=== PATIENT | female | born 1985 | race Caucasian/White ===

== ENCOUNTER 2022-08-12 10:37 | Emergency (ER) | payer OTHER ==
--- OUTSIDE RECORDS SUMMARY | 2022-08-12 10:55 | XMS REPORT | Continuity of Care Document ---
:1985 Author Organization [facility] t Address [address] [place] [address]. [address] [place] [address] Care Team Providers Name Role Phone ELSA JUNIOR Primary Care Physician Unavailable Regi Lynn Attending Clinician Unavailable Fallon Bhakta Attending Clinician Unavailable KAROLINE MEDEROS Attending Clinician Unavailable CRISTOBAL MARTINEZ Attending Clinician Unavailable LAB90 Attending Clinician Unavailable RADIOLOGY Attending Clinician Unavailable Radiology Attending Clinician Unavailable EMILIA Attending Clinician Unavailable Stephanie Clemente Attending Clinician Unavailable Regi Lynn Admitting Clinician Unavailable ELSA JUNIOR Admitting Clinician Unavailable EMILIA Admitting Clinician Unavailable Stephanie Clemente Admitting Clinician Unavailable Payers Payer Name Policy Type Policy Number Effective Date Expiration Date Reggie roman CIGNA 2 [id number] 2022 00:00:00 CIGNA II [id number] 2021 00:00:00 CIGNA C1 [id number] [facility] Problems Condition Condition Condition Status Onset Resolution Last Treating Co mments Source Name Details Category Date Date Treatment Clinician Date Current Current Disease Active Chani mild mild 2-08 Seybold episode of episode of 00:00: - major major 00 Externa depressive depressive l disorder disorder without without prior prior episode episode Acquired Acquired Disease Active Kelse y hypothyroi hypothyroi 06-20 Se ybold dism dism 00:00: - 00 Externa l Seasonal Seasonal Disease Active Kelse y allergic allergic - Seybol d rhinitis rhinitis 00:00: - due to due to 00 Externa pollen pollen l 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 06-20 Seybold disease disease 00:00: - without without 00 Externa complicati complicati l on on Well adult Well adult Disease Active Liana obrien exam exam 06-20 Seybold 00:00: - 00 Externa l History of History of Disease Active Liana elsegabriele abnormal abnormal 06-20 Seybol d cervical cervical 00:00: - Pap smear Pap smear 00 Exte rna l Thyromegal Thyromegal Disease Active Liana obrien y y 06-20 Seybold 00:00: - 00 Externa l Thyroid Thyroid Disease Active Chani nodule nodule 06-20 Seybold 00:00: - 00 Externa l 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 06-20 Seybold obesity obesity 00:00: - due to due to 00 Externa excess excess l calories calories without without serious serious comorbidit comorbidit y with y with body mass body mass index index (BMI) of (BMI) of 40.0 to 40.0 to 44.9 in 44.9 in adult adult Chronic Chronic Disease Active Chani right-side right-side 06-20 Se ybold d low back d low back 00:00: - pain with pain with 00 Exte rna sciatica sciatica l Long-term director long term care Problem Active Com mon current medication Spiri t use of use - [facility] drug [facility] Nicotine Nicotine Problem Active Commo n dependence dependence Sp [facility] [id number] Moderate Problem Active Comm on persistent Spirit asthma - [facility]I without St complicati [facility] Vitamin D Vitamin D Problem Active Com mon deficiency deficiency Sp [facility] Depression Depression Problem Active C ommon [facility] Environmen Environmen Problem Active C ommon lizzy lizzy Spirit allergy allergies - [facility] [id number] Eczema, Problem Active Common unspecifie Spirit d type - [facility] Allergies, Adverse Reactions, Alerts Allergy Allergy Status Severity Reaction(s) Onset Inactive Treating Comm ents Source Name Type Date Date Clinician gabrielas FA Active U UNKNOWN [facility] h 2-21 Clear derived 00:00: Angelo 00 [facility] Iodine Propensi Active Other Chani ty to 1-11 reaction( Seybold adverse 00:00: s): - reaction 00 Unknown Externa s l Shellfis Propensi Active Other Chani h ty to 1-11 reaction( Seybold Allergy adverse 00:00: s): - reaction 00 Unknown Externa s l No Known DA Active U [facility] Allergie 2-12 [place] s 00:00: d 00 [facility] NO KNOWN Drug Active Univers ALLERGIE Class ity of S [facility] Social History Social Habit Start Date Stop Date Quantity Comments Source History SDOH Chani whitehead Alcohol Frequency - Exter nal History SDOH Chani whitehead Alcohol Std Drinks - Exte rnal History SDOH Chani whitehead Alcohol Binge - External History of tobacco Cigarette Smoker Chani Angel use - External Alcohol intake 2022-07-18 2022-07-18 3.43 /d Chani parnell 00:00:00 00:00:00 - External Alcohol Comment 2022-06-20 2022-06-20 moderately Chani bishop 00:00:00 00:00:00 - External Education 2022-06-20 2022-06-20 16 Chani Angel 00:00:00 00:00:00 - External Cigarettes smoked 2022-06-20 2022-06-20 Chani Angel current (pack per 00:00:00 00:00:00 - Exter nal day) - Reported Cigarette 2022-06-20 2022-06-20 Chani Angel pack-years 00:00:00 00:00:00 - External Tobacco use and 2022-06-20 2022-06-20 Smokeless tobacco Ke lsey Seybold exposure 00:00:00 00:00:00 non-user - External Sex [birth year] At [birth year] Chani Gill ybold 00:00:00 00:00:00 - External Smoking Status Start Date Stop Date Source Tobacco smoking consumption [facility] Smokes tobacco daily 2022-06-20 00:00:00 Chani Gillybold - External Medications Ordered Filled Start Stop Current Ordering Indication Dosage Frequency Signature Comments Components Source Medication Medication Date Date Medication? Clinician (SIG) Name Name Cetirizine Yes 1{tbl} 1 tablet K elsey 10 MG oral 2-08 by other Seybo ld Tablet 11:11: route - 55 Externa l Rhubarb Yes Take by Chani (ESTROVEN 2-08 mouth Seybold COMPLETE 11:11: - OR) 55 Externa l Gabapentin Yes [id number] 300mg Q.5D Take 1 Chani 300 MG oral -08 capsule Seybo ld Capsule 00:00: (300 mg - total) by Externa mouth 2 l times daily as needed Levothyroxi 2022- No 50ug 50 mcg by Chani ne Sodium 06-20 other Seybold 50 MCG oral 11:11: 00:00 route - Tablet 07 :00 daily Externa l Sertraline 2022- No 50mg 50 mg by [place] mims HCl 50 MG 06-20 other Seybold oral Tablet 11:11: 00:00 route - 07 :00 daily Externa l Budesonide- 2022- No 2{puff} Inhale 2 Chani Formoterol 06-20 puffs into Se ybold Fumarate 11:11: 00:00 the lungs - (Symbicort) 07 :00 2 times Exter na 160-4.5 daily l MCG/ACT inhalation Aerosol Administere No Administer Chani puente 06-20 ed Seybold Medications 10:46: Medication - Medication 34 sMedicatio Ext crissy OrderMAR n OrderMAR l ActionActio ActionActi n on DateDoseRat DateDoseRa eSiteDecadr teSiteDeca onGi/ dronGiven9 {mg}Decadro {mg}Decadr nGiven2 onGiven07/11 {mg}Decadro {mg}Decadr sErmtt67/3/ blLfubw64 {mg}Kenalog {mg}Kenalo Given02/12/20 gGiven183940 {mg}Kenalog {mg}Kenalo Given nFpqts47/3 96713 {mg} /117943 {mg} Administere 2022-0 No Administer Chani d -11 ed Seybold Medications 10:46: Medication - Medication 34 sMedicatio Ext crissy OrderMAR n OrderMAR l ActionActio ActionActi n on DateDoseRat DateDoseRa eSiteDecadr teSiteDeca onGiven02/11/ dronGiven {mg}Decadro {mg}Decadr nGiven187 {mg}Decadro {mg}Decadr pDjpyj03/3/ pwSoxjw72 {mg}Kenalog {mg}Kenalo Given02/12/20 gGiven183940 {mg}Kenalog {mg}Kenalo Given bBxqmp00/3 86989 {mg} / {mg} Administere No Administer Chani d - ed Seybold Medications 10:46: Medication - Medication 34 sMedicatio Ext crissy OrderMAR n OrderMAR l ActionActio ActionActi n on DateDoseRat DateDoseRa eSiteDecadr teSiteDeca onGi/ dronGiven9 {mg}Decadro {mg}Decadr nGiven187 {mg}Decadro {mg}Decadr eVmmyw68/3/ cgLymfu27 {mg}Kenalog {mg}Kenalo Given02/12/20 gGiven183940 {mg}Kenalog {mg}Kenalo Given mFlffn23/3 12492 {mg} /523014 {mg} Administere No Administer Chani d - ed Seybold Medications 10:46: Medication - Medication 34 sMedicatio Ext crissy OrderMAR n OrderMAR l ActionActio ActionActi n on DateDoseRat DateDoseRa eSiteDecadr teSiteDeca onGiven9/4/ dronGiven9 {mg}Decadro {mg}Decadr nGiven187 {mg}Decadro {mg}Decadr mKqdji77// ozXaceo08 {mg}Kenalog {mg}Kenalo Given02/12/20 gG183940 {mg}Kenalog {mg}Kenalo Given qXpdlz90/3 42563 {mg} / {mg} Administere No Administer Chani d 06-20 ed Seybold Medications 10:46: Medication - Medication 34 sMedicatio Ext crissy OrderMAR n OrderMAR l ActionActio ActionActi n on DateDoseRat DateDoseRa eSiteDecadr teSiteDeca onGiven// dronGiven9 {mg}Decadro {mg}Decadr nGiven187 {mg}Decadro {mg}Decadr hDihmr45// syUxpvv38 {mg}Kenalog {mg}Kenalo Given02/12/20 gGiven183940 {mg}Kenalog {mg}Kenalo Given oSmemh57/3 91359 {mg} /202668 {mg} Cetirizine 2022- Yes 1{tbl} 1 tablet K elsey 10 MG oral 06-20 by other Seybo ld Tablet 10:46: route - 33 Externa l Rhubarb Yes Take by Chani (ESTROVEN - mouth Seybold COMPLETE 10:46: - OR) 33 Externa l Sertraline Yes [id number] 50mg Take 1 Chani HCl 50 MG 1-11 tablet (50 Seyb old oral Tablet 00:00: mg total) - 00 by mouth Externa daily l Levothyroxi 2022-0 Yes [id number] 50ug Take 1 Chani ne Sodium 1-11 tablet (50 Seyb old 50 MCG oral 00:00: mcg total) - Tablet 00 by mouth Externa daily l Budesonide- 2022-0 Yes [id number] 2{puff} Inhale 2 Chani Formoterol 1-11 6 puffs into Sey bold Fumarate 00:00: the lungs - (Symbicort) 00 daily Externa 160-4.5 l MCG/ACT inhalation Aerosol Gabapentin 2022-0 Yes [id number] 100mg Q.5D Take 1 Chani 100 MG oral 1-11 capsule Seybo ld Capsule 00:00: (100 mg - 00 total) by Externa mouth 2 l times daily as needed Sertraline 2022-0 Yes [id number] 50mg Take 1 Chani HCl 50 MG 1-11 tablet (50 Seyb old oral Tablet 00:00: mg total) - 00 by mouth Externa daily l Levothyroxi 2022-0 Yes [id number] 50ug Take 1 Chani ne Sodium 1-11 tablet (50 Seyb old 50 MCG oral 00:00: mcg total) - Tablet 00 by mouth Externa daily l Budesonide- 2022-0 Yes [id number] 2{puff} Inhale 2 Chani Formoterol 1-11 6 puffs into Sey bold Fumarate 00:00: the lungs - (Symbicort) 00 daily Externa 160-4.5 l MCG/ACT inhalation Aerosol Gabapentin 2022-0 2023- No [id number] 100mg Q.5D Take 1 Chani 100 MG oral 1-11 02-08 capsule Seyb old Capsule 00:00: 00:00 (100 mg - 00 :00 total) by Externa mouth 2 l times daily as needed Hibiclens Hibiclens 2020-0 Yes Fallon Nixon mmon Hand Pump Hand Pump 2-20 [place] directed Spirit 32oz 32oz 00:00: - [facility] 00 [facility] Hibiclens Hibiclens 2020-0 No Hibiclens Hand Pump Hand Pump 2-20 Hand Pump 32oz - 32oz - 00:00: 32oz - 00 Hibiclens Hibiclens 2020-0 No Hibiclens Hand Pump Hand Pump 2-20 Hand Pump 32oz - 32oz - 00:00: 32oz - 00 Hibiclens Hibiclens 2020-0 No Hibiclens Hand Pump Hand Pump 2-20 Hand Pump 32oz - 32oz - 00:00: 32oz - 00 Keflex Keflex 2019-0 2020- No Fallon 1 capsule Co mmon 2-20 03 [place] Spirit 00:00: 00:00 - CHI 00 :00 [facility] Symbicort Symbicort 0 2020- No Fallon 2 puffs Common 07-07 [place] Spirit 00:00: 00:00 - [facility]I 00 :00 [facility] 2018-06 Yes Fallon 1 Common ne ne 2-03 [place] applicatio Spirit Acetonide Acetonide 00:00: n - C HI 00 [facility] 2018-06 No 1{appli Triamcinol ne ne 2-03 cation} one Acetonide Acetonide 00:00: Acetonide 0.1 % 0.1 % 00 0.1 % [facility] No 1{appli Triamcinol ne ne 2-03 cation} one Acetonide Acetonide 00:00: Acetonide 0.1 % 0.1 % 00 0.1 % [facility] No 1{appli Triamcinol ne ne 2-03 cation} one Acetonide Acetonide 00:00: Acetonide 0.1 % 0.1 % 00 0.1 % Vitamin D3 Vitamin D3 2018-06 2020- No Fallon 1 capsule Common - 05 [place] Spirit 00:00: 00:00 - CHI 00 :00 [facility] Zyrtec Zyrtec Yes Fallon 1 tablet Common Allergy Allergy [facility] Zoloft Zoloft Yes Fallon 1 tablet Common [facility] Levothyroxi Levothyroxi Yes Fallon 1 tablet Common ne Sodium ne Sodium [place] in the Sp vern morning on - CHI an empty [facility] Sertraline Sertraline No Sertraline HCl 50 MG HCl 50 MG HCl 50 MG Zyrtec Zyrtec No 1{table QD Zyrtec Allergy 10 Allergy 10 t} Allergy 10 MG MG MG Levothyroxi Levothyroxi No QD Levothyrox ne Sodium ne Sodium ine Sodium 50 MCG 50 MCG 50 MCG Zyrtec Zyrtec No 1{table QD Zyrtec Allergy 10 Allergy 10 t} Allergy 10 MG MG MG Sertraline Sertraline No Sertraline HCl 50 MG HCl 50 MG HCl 50 MG Levothyroxi Levothyroxi No QD Levothyrox ne Sodium ne Sodium ine Sodium 50 MCG 50 MCG 50 MCG Levothyroxi Levothyroxi No QD Levothyrox ne Sodium ne Sodium ine Sodium 50 MCG 50 MCG 50 MCG Sertraline Sertraline No Sertraline HCl 50 MG HCl 50 MG HCl 50 MG ZyrTEC ZyrTEC No 1{table QD ZyrTEC Allergy 10 Allergy 10 t} Allergy 10 MG MG MG Symbicort Symbicort 2020- No 2{puffs BID Symbicort 160-4.5 160-4.5 09-07 } 160-4.5 MCG/ACT MCG/ACT 00:00 MCG/ACT :00 Symbicort Symbicort 2020- No 2{puffs BID Symbicort 160-4.5 160-4.5 09-07 } 160-4.5 MCG/ACT MCG/ACT 00:00 MCG/ACT :00 Symbicort Symbicort 2020- No 2{puffs BID Symbicort 160-4.5 160-4.5 09-07 } 160-4.5 MCG/ACT MCG/ACT 00:00 MCG/ACT :00 Immunizations Ordered Immunization Filled Immunization Date Status Commen ts Source Name Name Dexamethasone Dexamethasone 2019-05-12 Completed Common S pirit 11:23:00 - [facility] Dexamethasone Dexamethasone 2019-05-12 Completed [facility] 11:23:00 [facility] Dexamethasone Dexamethasone 2019-05-12 Completed [facility] 11:23:00 [facility] Kenalog Kenalog 2019-05-12 Completed [facility] (Triamcinolone) (Triamcinolone) 11:22:00 [facility] Kenalog Kenalog 2019-05-12 Completed [facility] (Triamcinolone) (Triamcinolone) 11:22:00 - [facility] 2019-05-12 Completed [facility] (Triamcinolone) (Triamcinolone) 11:22:00 - [facility] 2018-02-11 Completed [facility] (Triamcinolone) (Triamcinolone) 15:07:00 - [facility] 2018-02-11 Completed [facility] (Triamcinolone) (Triamcinolone) 15:07:00 - [facility] 2018-02-11 Completed [facility] (Triamcinolone) (Triamcinolone) 15:07:00 - [facility] Dexamethasone Dexamethasone 2018-02-11 Completed Common S pirit 15:06:00 - [facility] Dexamethasone Dexamethasone 2018-02-11 Completed Common S pirit 15:06:00 - [facility] Dexamethasone Dexamethasone 2018-02-11 Completed Common S pirit 15:06:00 - [facility] Dexamethasone Dexamethasone 2017-07-11 Completed Common S pirit 15:10:00 - [facility] Dexamethasone Dexamethasone 2017-07-11 Completed Common S pirit 15:10:00 - [facility] Dexamethasone Dexamethasone 2017-07-11 Completed Common S pirit 15:10:00 - [facility] Vital Signs Vital Name Observation Time Observation Value Comments Source Systolic blood 2022-07-18 17:09:00 123 mm[Hg] Chani Angel - pressure External Diastolic blood 2022-07-18 17:09:00 75 mm[Hg] Carmen Angel - pressure External Heart rate 2022-07-18 17:09:00 85 /min Chani wick - External Body temperature 2022-07-18 17:09:00 36.78 Mami Kaylie Angel - External Respiratory rate 2022-07-18 17:09:00 14 /min Kaylie Angel - External Body height 2022-07-18 17:09:00 167.6 cm Chani wick - External Body weight 2022-07-18 17:09:00 115.214 kg Chani wick - External BMI 2022-07-18 17:09:00 41.00 kg/m2 Chani S eybold - External Oxygen saturation in 2022-07-18 17:09:00 99 /min Chani Angel - Arterial blood by External Pulse oximetry Systolic blood 2022-06-20 16:39:00 110 mm[Hg] Chani Angel - pressure External Diastolic blood 2022-06-20 16:39:00 68 mm[Hg] Carmen suazo Seybold - pressure External Heart rate 2022-06-20 16:39:00 93 /min Chani ahujabold - External Body temperature 2022-06-20 16:39:00 36.28 Mami Kaylie ahuja Seybold - External Respiratory rate 2022-06-20 16:39:00 14 /min Kaylie ahuja Seybold - External Body height 2022-06-20 16:39:00 167.6 cm Chani ahujabold - External Body weight 2022-06-20 16:39:00 113.399 kg Chani Paredes eybold - External BMI 2022-06-20 16:39:00 40.35 kg/m2 Chani ahujabold - External height 2021-01-16 16:00:00 65.75 [in_i] Common [facility] weight 2021-01-16 16:00:00 235.8 [lb_av] [facility] temperature 2021-01-16 16:00:00 97.6 [degF] Common [facility] bmi 2021-01-16 16:00:00 38.34 kg/m2 [facility] oximetry 2021-01-16 16:00:00 99 % [facility] 2021-01-16 16:00:00 16 /min Comm on [facility] blood pressure 2021-01-16 16:00:00 139 mm[Hg] Common [facility] - systolic [facility] blood pressure 2021-01-16 16:00:00 84 mm[Hg] Common [facility] - diastolic [facility] height 2020-07-19 16:20:00 65.75 [in_i] Common S pirit [facility] weight 2020-07-19 16:20:00 232.2 [lb_av] Common [facility] temperature 2020-07-19 16:20:00 97.2 [degF] Common [facility] bmi 2020-07-19 16:20:00 37.76 kg/m2 Common [facility] oximetry 2020-07-19 16:20:00 99 % Common [facility] respiratory rate 2020-07-19 16:20:00 18 /min Comm on [facility] blood pressure 2020-07-19 16:20:00 137 mm[Hg] Common [facility] systolic [facility] blood pressure 2020-07-19 16:20:00 72 mm[Hg] Common [facility] diastolic [facility] Procedures Procedure Date / Time Performed Performing Clinician [facility] US HEAD NECK 2021-12-29 13:38:45 Requisition, Paper [facility] [id number] 2015-07-22 00:00:00 [facility] [id number] 2015-07-22 00:00:00 [facility] Encounters Start End Encounter Admission Attending Care Care Encounter Source Date/Time Date/Time Type Type Clinicians Facility Department ID 2022-08-09 Inpatient MANSI Tabor [id number] [facility] 07:30:00 Regi Dewey [facility] 2021-07-05 Outpatient [place], [facility]LMLC [facility] [id number] Common 12:24:22 Fallon [id number] [facility] 2021-07-05 Outpatient [place], STLMLC ST[facility]C [id number] Common 12:22:30 Fallon [id number] [facility] 2021-07-05 Outpatient [place], STLMLC ST[facility]C [id number] Common 11:08:53 Fallon [id number] [facility] 2021-07-05 Outpatient [place], STLMLC STLMLC [id number] Common 10:57:48 Fallon [id number] [facility] 2022-09-21 2022-09-21 Outpatient CHANI MEDEROS [id number] Chani 14:00:00 14:00:00 KAROLINE Seybol d 2022-09-11 2022-09-11 Outpatient CHANI MEDEROS [id number] Chani 14:30:00 14:30:00 KAROLINE Seybol d 2022-08-29 2022-08-29 Outpatient CHANI MARTINEZ [id number] Chani 11:15:00 11:15:00 CRISTOBAL Seybol d 2022-08-09 2022-08-09 [id number] [facility] 05:33:00 05:33:00 Regi Dewey [facility] 2022-07-18 2022-07-18 Outpatient CHANI MARTINEZ [id number] Chani 11:15:00 11:15:00 CRISTOBAL Seybol d 2022-06-20 2022-06-20 Outpatient LAB90 CHANI COTE [id number] Chani 11:30:00 11:30:00 Seybol d 2022-06-20 2022-06-20 Outpatient CHANI MARTINEZ [id number] Chani 10:45:00 10:45:00 CRISTOBAL Seybol d 2021-12-29 2021-12-29 Outpatient R RADIOLOGY [facility] [id number] Univers 08:08:34 23:59:00 ity of [facility] 2021-12-29 2021-12-29 Hospital Radiology [facility] [id number] Univers 08:00:00 23:59:00 Encounter [place] [id number] ity [facility] [id number] [facility] [id number] [facility] [address] 2021-12-19 2021-12-19 Outpatient [facility] [id number] [place] 02:13:00 02:13:00 _ANN 0712 da [facility] Outre h Program 2021-01-16 2021-01-16 OFFICE STLMLC STLMLC [id number] Co mmon 00:00:00 00:00:00 VISIT EST Spir it PT LEVEL 3 - [facility] 2020-07-30 2020-07-30 (TEL) STLMLC STLMLC [id number] Co mmon 00:00:00 00:00:00 Spirit - CHI [facility] 2020-07-19 2020-07-19 OFFICE STLMLC STLMLC [id number] Co mmon 00:00:00 00:00:00 VISIT EST Spir it PT LEVEL 3 [facility] 2019-07-30 2019-07-30 [facility] [id number] Common 14:00:00 14:00:00 t [facility] [address] [facility] [facility] 2019-07-07 2019-07-07 Outpatient [facility] [id number] Common 16:54:00 16:54:[address] [facility] 2019-06-12 2019-06-12 Outpatient [facility] [id number] Common 09:40:00 09:40:00 t [facility] [address] [facility] [facility] 2019-05-12 2019-05-12 Outpatient [facility] [id number] Common 10:40:00 10:40:00 t [facility] [address] [facility] [facility] 2019-04-29 2019-04-29 Outpatient [facility] [id number] Common 11:36:00 11:36:00 t [facility] [address] [facility] [facility] 2019-04-20 2019-04-20 Outpatient [facility] [id number] Common 15:20:00 15:20:[address] [facility] 2015-07-22 2015-07-23 [id number] 07:49:00 17:20:[address] [place] [address] Results Test Description Test Time Test Comments Results Result Comments Source SURGICAL 2022-08-10 15:18:00 Test Item Value Reference Range Interpretation Comme nts SURGICAL RUN DATE: (test 08/10/22 [facility] Danny Muhammad d - LAB PAGE 1 RUN TIME: 1518 Specimen Inquiry RUN USER: INTERFACE code = PATIENT: LANETTE BLACKMON ACCT #: [id number] LOC: ChitraU U #: [id number] AGE/SX: 37/F ROOM: RE08/09/22REG DR: Regi Lynn MD : 85 BED: DIS: STATUS : [facility] TLOC: SPEC #: [id number] RECD: 08/09/221056 STATUS: CAITLIN STACK #: [id number] NEREIDA: 08/09/22853 [facility] DR: Regi Lynn MD ENTER ED: 08/09/22 SP TYPE: SURGICAL OTHR DR: ORDERED: 33629/2, ANATOMIC SPEC, SPECIMEN TRACK PROCEDU RES: [id number] (08/10/22-1246) SPECIMEN TRACK (08/09/22) TISSUES: A. THYROID LOBE, LEFT - LEFT TH YROID B. THYROID LOBE, RIGHT - RIGHT THYROID FINAL DIAGNOSIS A. Left thyroid, left thyroidectomy: - Multinodular hyperplasia B. Right thryoid, right thyroidectomy:- Multinodular hyperplasia and small fragment of benign parathyroid tissue present GROSS DESCRIPTION A. Left thyroid. Received is a thyroid lobe that weighs 28.6 g and measures 5.5 x 4 x 3.2cm. No orientation is provided. The surface is vascular and purple. The external surface isinked green. It is serially sectioned to reveal a multi soft nodular surface. These nodulesrange 0.6 - 2.8 cm in greatest dimension. It has a partially calcified wall surroundinga cystic area measuring 0.8 x 0.5 x 0.5 cm. No papillary features are identified. Nop arathyroid tissue is grossly seen. The cystic calcified wall submitted as A1 and multipleadditional secti ons submitted as A2-A10. B. Right thyroid. Received is a thyroid lobe that weighs 8.4 g and measure 4.5 x 2.2 x 1.5cm. There is a nodule on the surface measuring 0.5 x 0.4 x 0.4 cm. The external surfaceis i nked blue. No orientation is provided. It is serially sectioned to reveal a fibrousnodule measuring 0.5 x 0.5 x 0.4 cm and a gelatinous nodule 0.5 x 0.4 x 0.4 cm. Thefibrous nodule submitted as B1-B2, gelatino us nodule submitted as B3-B4 and normalappearing thyroid parenchyma as B5 and the nodule on the surfac e is bisected submitted asB6. Technical tissue processing and slide preparation performed at [facility] [address] , [place] [address] Unless gross only, the diagnosis is based upon micr oscopic examination.Immunohistochemistry: This test was developed and its performance characteristicsd etermined by this laboratory. It has not been approved nor does it need approval by the USFDA. Appro priate positive and negative controls are reviewed and judged to be acceptable. CONTINUED ON NEXT PAGE RUN DATE: 08/10/22 ROBBY Delgado [employer] [facility] LAB PAGE 2 RUN TIME: 1517 Specimen Inquiry RUN USER: INTERFACE SPEC #: [id number] PATIENT: LANETTE ROBLEDO #[id number] (Continued) GROSS DESCRIPTION (Continued ) This laboratory is certified under the Clinical Laboratory Improvement Amendments (CLIA-88)as quali fied to perform high complexity clinical laboratory testing. Signed Kimberly Larsen 08/30 END OF REPORT PARATHYROID HORMONE [id number] 14:21:00 Test Item Value Reference Range Interpretation Comments PARATHYROID HORMONE INTACT (test 3.8 pg/mL 14.0-72.0 L code = PARAI) PARATHYROID HORMONE [id number] 14:20:00 Test Item Value Reference Range Interpretation Comments PARATHYROID HORMONE INTACT (test 3.8 pg/mL 14.0-72.0 L code = PARAI) PROTHROMBIN [id number] 16:48:00 Test Item Value Reference Range Interpretation Comments PT PATIENT (test 10.6 SECONDS 9.3-12.9 N code = PTP) INTERNATIONAL NORMAL 0.96 INR Unit 0.8-1.2 N TARGE T INR BY RATIO (test code = INDICATIO N Indication INR) INR1. Prophylax is of venous thrombos is 2.0 - 3.0 (orthoped ic surgery), Proph ylaxis of venous throm bosis (other than hig h-risk surgery), Treat ment of Deep Vein Thrombosis/Pulm onary Embolism, Preve ntion of systemic emb olism - Tissue heart va lves, Acute Myocardia l Infarction (to prevent systemic emboli sm), Valvular heart disease, Acute Myocardial Infa rction (to prevent sys temic embolism), Valv ular heart disease, Atrial Fibrillation, Bileaflet mecha nical valve in aortic position.2. Mec hanical prosthetic valv es (high risk), 2. 5 - 3.5 Presence of Lup us Anticoagulant o r Antiphospholipi d Antibodies, Pre vention of systemic emb olism - Acute Myocardia l Infarction (to prevent recurrent infar ct). THROMBOPLASTIN TIME [id number] 16:48:00 Test Item Value Reference Range Interpretation Comments THROMBOPLASTIN TIME PARTIAL 28.8 SECONDS 26-35 N (test code = PTT) CBC W/AUTO [id number] 15:48:00 Test Item Value Reference Range Interpretation Comments WHITE BLOOD CELL (test code = 7.2 K/mm3 3.5-11.0 N WBC) RED BLOOD CELL (test code = 3.98 M/mm3 4.70-6.10 L RBC) HEMOGLOBIN (test code = HGB) 13.7 G/DL 10.4-14.9 N HEMATOCRIT (test code = HCT) 40.3 % 31.5-44.1 N MEAN CELL VOLUME (test code = 101.3 Fl 84.5-98.6 H MCV) MEAN CELL HGB (test code = MCH) 34.4 pg 27.0-34.2 H MEAN CELL HGB CONCETRATION 34.0 G/DL 31.5-34.0 N (test code = MCHC) RED CELL DISTRIBUTION WIDTH 12.0 SD 11.5-14.5 N (test code = RDW) PLATELET COUNT (test code = 200 K/mm3 150-450 N PLT) MEAN PLATELET VOLUME (test code 10.30 fL 7.0-10.5 N = MPV) NEUTROPHIL % (test code = NT%) 57.5 % 40-76 N IMMATURE GRANULOCYTE % (test 0.3 % 0.0-5.0 N code = IG%) LYMPHOCYTE % (test code = LY%) 27.8 % 20.5-51.1 N MONOCYTE % (test code = MO%) 11.6 % 1.7-9.3 H EOSINOPHIL % (test code = EO%) 2.0 % 0.0-6.0 N BASOPHIL % (test code = BA%) 0.8 % 0.0-2.0 N NUCLEATED RBC % (test code = 0.0 /100WBC% 0.0-1.0 N NRBC%) NEUTROPHIL # (test code = NT#) 4.1 K/mm3 1.8-7.6 N IMMATURE GRANULOCYTE # (test 0.02 x10 3/uL 0.00-0.03 N code = IG#) LYMPHOCYTE # (test code = LY#) 2.0 K/mm3 0.6-3.2 N MONOCYTE # (test code = MO#) 0.8 K/mm3 0.3-1.1 N EOSINOPHIL # (test code = EO#) 0.1 K/mm3 0.0-0.4 N BASOPHIL # (test code = BA#) 0.1 K/mm3 0.0-0.1 N NUCLEATED RBC # (test code = 0.0 K/mm3 0.0-0.1 N NRBC#) MANUAL DIFF REQUIRED (test code NO DIFF/SCN CRITERIA = MDIFF) HCG SERUM [id number] 15:41:00 Test Item Value Reference Range Interpretation Comments HCG SERUM QUAL (test SERUM NEGATIVE SCREEN NEGATIVE code = HCGQL)
[2022-08-12 11:20] LABS: Absolute Lymphocytes (CBC) 2.2 K/uL (0.7-4.9); Hematocrit 40.7 % (36.0-45.0); Lymphocytes % 30.6 % (15.3-44.8); MCV 101.8 fL (80-100); MPV 8.3 fL (7.6-11.3)
[2022-08-12 11:54] LABS: Albumin 3.3 g/dL (3.4-5.0); Bilirubin Total 0.2 mg/dL (0.2-1.0); Potassium 3.9 mmol/L (3.5-5.1); Protein, Total 6.5 g/dL (6.4-8.2)
[2022-08-12] MEDS ORDERED: CALCITROL 0.25 MCG CAP PO ONE ×2 (14:00→14:06)
[2022-08-12] MEDS ORDERED: CALCIUM CARBONATE 500 MG TAB PO ONE ×2 (14:00→15:00)
[2022-08-12] MEDS ORDERED: CALCIUM CARBONATE CHEW 500MG TAB ONE (14:07)
[2022-08-12] MEDS ORDERED: CALCIUM GLUCONATE 1 GM IVPB 1 GM/50 ML BAG IV ONE ×2 (14:15→14:48)
[2022-08-12] MEDS ORDERED: DRISDOL (VITAMIN D=ERGOCALCIFEROL) 50000 UNIT CAP PO ONE (15:00)
--- NOTE | 2022-08-12 15:34 | ER ---
Nurse's Notes [facility] Name: Sammi Aguirre Age: 37 yrs Sex: Female : 1985 Arrival Date: 08/12/2022 Time: 10:39 Bed 14 Private MD: Mihir Ba Diagnosis: Hypocalcemia Presentation: 08/12 10:42 Chief complaint: Patient states: NEISHA hand numbness and tingling and Left side of face vg1 that began last night around 2099. Pt recently had a thyroidectomy on 08/09/22. Denies h/a, blurred vision or weakness. Coronavirus screen: Vaccine status: Patient reports receiving the 2nd dose of the covid vaccine. Client denies travel out of the [place] in the last 14 days. Ebola Screen: Patient negative for fever greater than or equal to 101.5 degrees Fahrenheit, and additional compatible Ebola Virus Disease symptoms. Initial Sepsis Screen: Does the patient meet any 2 criteria? No. Patient's initial sepsis screen is negative. Does the patient have a suspected source of infection? No. Patient's initial sepsis screen is negative. Risk Assessment: Do you want to hurt yourself or someone else? Patient reports no desire to harm self or others. Onset of symptoms was August 11, 2022 at 21:00. 10:42 Method Of Arrival: Ambulatory vg1 10:42 Acuity: IVANNA 3 vg1 Triage Assessment: 10:46 General: Appears uncomfortable, Behavior is calm, cooperative. Pain: Denies pain. vg1 Neuro: Level of Consciousness is awake, alert, obeys commands, Oriented to person, place, time, situation, Doughnut Icer are equal bilaterally Moves all extremities. Gait is steady, Speech is normal, Facial symmetry appears normal, Reports numbness paresthesias in right hand and left hand and left side of face. Cardiovascular: Patient's skin is warm and dry. Respiratory: Airway is patent Respiratory effort is even, unlabored. Musculoskeletal: Reports numbness in right hand and left hand and left side of face. 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 - Social history:: Smoking status: Patient reports the use of cigarette tobacco products, smokes one-half pack cigarettes per day. Screenin:25 [facility] ED Fall Risk Assessment (Adult) Score/Fall Risk Level 0 - 2 = Low Risk ll1 Oriented to surroundings, Maintained a safe environment, Educated pt \T\ family on fall prevention, incl call for assistance when getting out of bed, Hourly rounding (assess needs \T\ fall precautionary measures) done. Abuse screen: Denies threats or abuse. Nutritional screening: No deficits noted. Tuberculosis screening: No symptoms or risk factors identified. Assessment: 11:00 Reassessment: No changes from previously documented assessment. Patient and/or family ll1 updated on plan of care and expected duration. Pain level reassessed. Patient is alert, oriented x 3, equal unlabored respirations, skin warm/dry/pink. 12:31 Reassessment: No changes from previously documented assessment. Patient and/or family ll1 updated on plan of care and expected duration. Pain level reassessed. Patient is alert, oriented x 3, equal unlabored respirations, skin warm/dry/pink. 13:24 Reassessment: No changes from previously documented assessment. Dr. Lynn at . ll1 14:09 Reassessment: No changes from previously documented assessment. Patient and/or family ll1 updated on plan of care and expected duration. Pain level reassessed. Patient is alert, oriented x 3, equal unlabored respirations, skin warm/dry/pink. 14:56 Reassessment: No changes from previously documented assessment. Patient and/or family ll1 updated on plan of care and expected duration. Pain level reassessed. Patient is alert, oriented x 3, equal unlabored respirations, skin warm/dry/pink. 15:42 Reassessment: No changes from previously documented assessment. Patient and/or family ll1 updated on plan of care and expected duration. Pain level reassessed. Patient is alert, oriented x 3, equal unlabored respirations, skin warm/dry/pink. Vital Signs: 10:42 BP 121 / 89; Pulse 90; Resp 16; Temp 98.2(O); Pulse Ox 98% on R/A; Weight 108.86 kg; vg1 Height 5 ft. 6 in. (167.64 cm); Pain 0/10; 14:56 BP 125 / 77; Pulse 80; Resp 16; ll1 10:42 Body Mass Index 38.74 (108.86 kg, 167.64 cm) vg1 ED Course: 10:39 Patient arrived in ED. am2 10:39 Mihir Ba DO is Private Physician. am2 10:46 Triage completed. vg1 10:46 Arm band placed on. vg1 10:49 Philly Conner PA is PHCP. en 10:49 Nick Chinchilla MD is Attending Physician. en 11:00 Bill Pitts RN is Primary Nurse. ll1 11:00 Inserted saline lock: 22 gauge in left antecubital area, using aseptic technique. Blood ll1 collected. 13:26 Patient has correct armband on for positive identification. Bed in low position. Call ll1 light in reach. Side rails up X2. Cardiac monitoring not applicable on this patient. 15:33 Regi Lynn MD is Referral Physician. en 15:42 No provider procedures requiring assistance completed. IV discontinued, intact, ll1 bleeding controlled, No redness/swelling at site. Pressure dressing applied. Administered Medications: 13:47 CANCELLED (Duplicate Order): Calcium Chloride 1.5 grams IVP once en 14:08 Drug: calcitrioL 0.5 mcg Route: PO; ll1 14:56 Follow up: Response: No adverse reaction ll1 14:09 Drug: Calcium Carbonate 1500 mg Route: PO; ll1 14:56 Follow up: Response: No adverse reaction ll1 14:54 Drug: Vitamin D 66041 units Route: PO; ll1 15:59 Follow up: Response: No adverse reaction ll1 14:54 Drug: Calcium Gluconate 1 grams Route: IVPB; Infused Over: 60 mins; Site: left ll1 antecubital; 15:40 Follow up: Response: No adverse reaction; IV Status: Completed infusion; IV Intake: ll1 100ml Medication: 13:26 VIS not applicable for this client. ll1 Intake: 15:40 IV: 100ml; Total: 100ml. ll1 Outcome: 15:33 Discharge ordered by . en 15:42 Patient left the ED. ll1 15:42 Discharged to home ambulatory. ll1 15:42 Condition: stable 15:42 Discharge instructions given to patient, Instructed on discharge instructions, follow up and referral plans. Demonstrated understanding of instructions, follow-up care. Signatures: Arti Tafoya Victoria RN RN vg1 Bill Pitts RN RN ll1 Philly Conner PA PA en
--- NOTE | 2022-08-12 15:34 | EDPHYS ---
Physician Documentation [facility] Name: Sammi Aguirre Age: 37 yrs Sex: Female : 1985 Arrival Date: 08/12/2022 Time: 10:39 Bed 14 Private MD: Mihir Ba ED Physician Nick Chinchilla HPI: 08/12 11:19 This 37 yrs old Female presents to ER via Ambulatory with complaints of Numbness Of en Face, Numbness Of Hand. 11:19 37-year-old female status post total thyroidectomy postop day 3 presents to ED with en perioral tingling and paresthesias. She denies carpopedal spasms. Pain is well controlled. No fevers, chills, nausea, vomiting. No difficulty breathing or swallowing.. 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 - Social history:: Smoking status: Patient reports the use of cigarette tobacco products, smokes one-half pack cigarettes per day. ROS: 11:19 Constitutional: Negative for fever, chills, and weight loss. en 11:19 Eyes: Negative for blurry vision. 11:19 ENT: Positive for Perioral tingling. Appropriate postoperative neck pain without trouble breathing or swallowing. 11:19 Neck: Positive for Appropriate anterior postoperative discomfort.. 11:19 Cardiovascular: Negative for chest pain, palpitations. 11:19 Respiratory: Negative for cough, dyspnea on exertion, shortness of breath. 11:19 Endocrine: Positive for Perioral tingling, paresthesias of the hands. 11:19 All other systems are negative. Exam: 11:19 Constitutional: This is a well developed, well nourished patient who is awake, alert, en and in no acute distress. 11:19 Constitutional: The patient appears in no acute distress, alert, awake. 11:19 ENT: Airway patent, no stridor. 11:19 Neck: Anterior neck surgical incision intact with Steri-Strips, clean and dry. No erythema or drainage. KITA drain in place with 10 cc of serous drainage. 11:19 Cardiovascular: Rate: normal, Rhythm: regular, Heart sounds: normal. 11:19 Respiratory: the patient does not display signs of respiratory distress, Breath sounds: are clear throughout. 15:30 Head/face: + Chovstek's sign. en 15:30 Musculoskeletal/extremity: + trousseaus sign . Vital Signs: 10:42 BP 121 / 89; Pulse 90; Resp 16; Temp 98.2(O); Pulse Ox 98% on R/A; Weight 108.86 kg; vg1 Height 5 ft. 6 in. (167.64 cm); Pain 0/10; 14:56 BP 125 / 77; Pulse 80; Resp 16; ll1 10:42 Body Mass Index 38.74 (108.86 kg, 167.64 cm) vg1 MDM: 11:19 Patient medically screened. en 11:19 Differential diagnosis: Surgical hypothyroidism most likely given patient's symptoms en and recent total thyroidectomy. Will check labs and replace as instructed by ENT. Data reviewed: vital signs, nurses notes, lab test result(s). Management of patient was discussed with the following: Tube Man: Patient's ENT. Historians other than the Patient: Patient is ENT called in requesting hypothyroidism work-up. 12:50 ED course: Spoke with BLAKE Flores. She will come to the ED to see patient. en 15:30 Consideration of Admission/Observation Escalation of care including en admission/observation considered. Patient symptoms have resolved so admission is not necessary at this. I considered the following discharge prescriptions or medication management in the emergency department Medications were administered in the Emergency Department. See MAR. Medication response: improved with Ca replacement. ED course: Patient's perioral tingling and hand paresthesias have resolved after calcium replacement. Spoke with Dr. Lynn ENT. Patient is safe for discharge home and will continue her home regimen and follow-up with her in the clinic.. 08/12 10:55 Order name: CBC with Diff en 08/12 10:55 Order name: CMP en 08/12 10:55 Order name: Pth,Intact en 08/12 10:55 Order name: Calcium en 08/12 10:55 Order name: IV Start; Complete Time: 11:00 en 08/12 11:36 Order name: CBC with Automated Diff; Complete Time: 11:38 EDMS 08/12 11:55 Order name: Comprehensive Metabolic Panel; Complete Time: 12:05 EDMS 08/12 12:21 Order name: PTH Intact; Complete Time: 12:43 EDMS 08/12 13:56 Order name: EKG Strip; Complete Time: 14:09 kdr Administered Medications: 13:47 CANCELLED (Duplicate Order): Calcium Chloride 1.5 grams IVP once en 14:08 Drug: calcitrioL 0.5 mcg Route: PO; ll1 14:56 Follow up: Response: No adverse reaction ll1 14:09 Drug: Calcium Carbonate 1500 mg Route: PO; ll1 14:56 Follow up: Response: No adverse reaction ll1 14:54 Drug: Vitamin D 13164 units Route: PO; ll1 15:59 Follow up: Response: No adverse reaction ll1 14:54 Drug: Calcium Gluconate 1 grams Route: IVPB; Infused Over: 60 mins; Site: left ll1 antecubital; 15:40 Follow up: Response: No adverse reaction; IV Status: Completed infusion; IV Intake: ll1 100ml Disposition: 16:42 Co-signature as Attending Physician, Nick Chinchilla MD I agree with the assessment and kdr plan of care. Disposition Summary: 08/12/22 15:33 Discharge Ordered Location: Home en Problem: new en Symptoms: have improved en Condition: Stable en Diagnosis - Hypocalcemia en Followup: en - With: Regi Lynn MD - When: 2 - 3 days - Reason: Discharge Instructions: - Discharge Summary Sheet en - Hypocalcemia, Adult en Forms: - Medication Reconciliation Form en - Thank You Letter en - Antibiotic Education en - Prescription Opioid Use en Signatures: Dispatcher [employer] EDTN Nick Chinchilla MD MD kdr Tory French RN RN vg1 Bill Pitts RN RN ll1 Philly Conner PA PA en Corrections: (The following items were deleted from the chart) 13:47 13:30 Calcium Chloride 1.5 grams IVP once ordered. en en 13:47 13:46 Calcium Chloride 1.5 grams IVP once ordered. en en
[2022-08-12 15:47] VITALS: TEMP 98.2; O2SAT 98
[2022-08-12 15:48] VITALS: BP 125/77
--- NOTE | 2022-08-12 16:49 | P.PN ---
Date of Service: 08/12/22 Came to re-assess patient and noted she had been discharged home. Nurse reports symptoms of hypoCa were resolved and patient desired discharge. EKG reviewed and normal sinus rhythm with normal QT interval. Phoned patient and advised to take 1gm CaCO3 q6h and increase home calcitriol to 0.5mcg (2 tabs of 0.25mcg) PO BID and keep FU in the AM.
--- NOTE | 2022-08-12 18:14 | CON ---
Date of Consultation: 08/12/2022 Reason For Consultation: Symptomatic postsurgical hypothyroidism. History Of Present Illness: Sammi underwent a total thyroidectomy on August [address] Lynn at [facility]. Postoperatively, her PTH was low at 3.5. We discussed options for admissions versus outpatient management and she was highly motivated for outpatient management and was discharged with instructions regarding symptoms of hypocalcemia. The patient was contacted on postoperative day 1, at which time she was asymptomatic and was proceeding to have her labs drawn as instructed. Later that afternoon, her corrected calcium was 7.6, but she remained without active symptoms. She was instructed to begin oral calcium carbonate 1 g 3 times a day with meals and calcitriol 0.25 mcg daily. She began that medication regimen as instructed. Overnight on August 11, 2022 around 9 p.m., she began to have some symptoms of hypocalcemia with tingling in the fingertips and around the mouth. She elected to take an extra dose of calcitriol. On Saturday morning around 8 a.m., she remained symptomatic. She took a dose of the calcitriol 0.25 mcg along with her oral calcium and contacted the on-call physician. The on-call physician contacted me and I spoke with the patient and instructed her to go to [facility] for laboratory evaluation. I coordinated care with the emergency room in regard to performance of labs. The patient at the time of my evaluation approximately 2 p.m. remained asymptomatic from her hypocalcemia with tingling and numbness sensations of the face and fingertips. Physical Examination: The patient is in no acute distress. She is alert and oriented. Her neck is flat with Steri-Strips and KITA in place with scant drainage. There is no significant swelling, her voice is normal. The patient is tolerating her secretions. She has a positive Chvostek sign. Laboratory Studies: PTH less than 6, corrected calcium 7.6 with albumin of 3.3 and serum calcium of 7.0. These levels are stable compared to the laboratory findings on postop day 1August 10. Assessment: Symptomatic hypocalcemia, postsurgical following thyroidectomy. I discussed the options with the patient who remains highly motivated for outpatient management. I ordered an EKG, IV calcium 1 g x1, p.o. calcium 1.5 g x1 now, calcitriol 0.5 mcg p.o. x1 now, vitamin D 50,000 units p.o. x1 now. I will plan to re-evaluate the patient in about 3 or 4 hours allowing time for her to receive the above ordered medications. If the patient had EKG abnormalities or remains symptomatic after medical therapy, we will need to discuss options for admission/observation. If her symptoms resolve, we can plan for continued outpatient management with increase of p.o. calcium 1 g q.6 hours and increase of calcitriol to 0.5 mcg b.i.d. The patient has scheduled followup with Dr. Lynn around 11 a.m. on August 13, so close clinical followup is available. We will await response to medical therapy prior to decision making for admission versus discharge. EDGAR/EVONNE Voice ID: [id number] Report ID: [id number] MTDD
--- NOTE | 2022-08-13 16:39 | EKG ---
Test Date: 2022-08-12 Test Time: 14:12:43 Supervisor Operations: HUMBERTO MEASUREMENT RESULTS: Intervals: Rate: 80 FL: 126 QRSD: 88 QT: 406 QTc: 468 [place]: P: 33 FL: 126 QRS: 17 T: 48 INTERPRETIVE STATEMENTS: Normal sinus rhythm Normal ECG No previous ECG available for comparison Electronically Signed On 08-13-22 16:36:58 ECONOMIC DEVELOPMENT SPECIALIST by Keshawn Khalil
== END 2022-08-12 15:42 | disposition home or self-care (01) ==
LOC: ER 10:37
DX: E83.51 Hypocalcemia (principal); E03.9 Hypothyroidism, unspecified; F17.210 Nicotine dependence, cigarettes, uncomplicated
CPT/HCPCS: 96365; 93005; 85025; 36415; 83970; 80053; 99283; J0610

== ENCOUNTER 2022-11-06 09:54 | Emergency (ER) | payer OTHER ==
--- OUTSIDE RECORDS SUMMARY | 2022-11-06 09:58 | XMS REPORT | Continuity of Care Document ---
:1985 Author Organization [facility] t Address [address] [place] [address]. [address] [place] [address] Care Team Providers Name Role Phone ELSA JUNIOR Primary Care Physician Unavailable Regi Lynn Attending Clinician Unavailable Fallon Bhakta Attending Clinician Unavailable ALEKSANDER LANE Attending Clinician Unavailable CRISTOBAL MARTINEZ Attending Clinician Unavailable KAROLINE MEDEROS Attending Clinician Unavailable LAB90 Attending Clinician Unavailable RADIOLOGY Attending Clinician Unavailable Radiology Attending Clinician Unavailable EMILIA Attending Clinician Unavailable Stephanie Clemente Attending Clinician Unavailable Regi Lynn Admitting Clinician Unavailable ELSA JUNIOR Admitting Clinician Unavailable EMILIA Admitting Clinician Unavailable Stephanie Clemente Admitting Clinician Unavailable Payers Payer Name Policy Type Policy Number Effective Date Expiration Date S jessie CIGNA 2 [id number] 2022 00:00:00 CIGNA II [id number] 2021 00:00:00 CIGNA C1 [id number] [facility] Problems Condition Condition Condition Status Onset Resolution Last Treating Co mments Source Name Details Category Date Date Treatment Clinician Date History of History of Disease Active K elsey cervical cervical 4-14 Seybol d dysplasia dysplasia 00:00: - 00 Externa l Nicotine Nicotine Disease Active Kelse y dependence dependence 4-14 Se ybold 00:00: - 00 Externa l Vitamin D Vitamin D Disease Active León sey deficiency deficiency 4-14 Se ybold 00:00: - 00 Externa l Current Current Disease Active Chani mild mild 2-08 Seybold episode of episode of 00:00: - major major 00 Externa depressive depressive l disorder disorder without without prior prior episode episode Chronic Chronic Disease Active Chani right-side right-side 1-11 Se ybold d low back d low back 00:00: - pain with pain with 00 Exte rna sciatica sciatica l Acquired Acquired Disease Active Kelse y hypothyroi hypothyroi 1-11 Se ybold dism dism 00:00: - 00 Externa l Seasonal Seasonal Disease Active Kelse y allergic allergic 1-11 Seybol d rhinitis rhinitis 00:00: - due to due to 00 Externa pollen pollen l 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 1-11 Seybold disease disease 00:00: - without without 00 Externa complicati complicati l on on Well adult Well adult Disease Active K elsey exam exam -11 Seybold 00:00: - 00 Externa l History of History of Disease Active K elsey abnormal abnormal 1-11 Seybol d cervical cervical 00:00: - Pap smear Pap smear 00 Exte rna l 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 -11 Seybold 00:00: - 00 Externa l Thyroid Thyroid Disease Active Chani nodule nodule -11 Seybold 00:00: - 00 Externa l 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 1-11 Seybold obesity obesity 00:00: - due to due to 00 Externa excess excess l calories calories without without serious serious comorbidit comorbidit y with y with body mass body mass index index (BMI) of (BMI) of 40.0 to 40.0 to 44.9 in 44.9 in adult adult Long-term nursing home Problem Active Com mon current medication Spiri t use of use - [facility] drug [facility] [id number] Moderate Problem Active Comm on persistent Spirit asthma - [facility] without complicati [facility] Depression Depression Problem Active C ommon [facility] Environmen Environmen Problem Active C ommon lizzy lizzy Spirit allergy allergies - [facility] [id number] Eczema, Problem Active Common unspecifie Spirit d type - [facility] Allergies, Adverse Reactions, Alerts Allergy Allergy Status Severity Reaction(s) Onset Inactive Treating Comm ents Source Name Type Date Date Clinician shellfis FA Active U UNKNOWN [facility] h 2-21 Clear derived 00:00: Angelo 00 [facility] Iodine Propensi Active Other Chani ty to -11 reaction( Seybold adverse 00:00: s): - reaction 00 Unknown Externa s l Shellfis Propensi Active Anaphylaxis Other K elsey h ty to 11 reaction( Seybold Allergy adverse 00:00: s): - reaction 00 Unknown Externa s l No Known DA Active U [facility] Allergie 2-12 [place] s 00:00: d 00 [facility] NO KNOWN Drug Active Univers ALLERGIE Class ity of [facility] Social History Social Habit Start Date Stop Date Quantity Comments Source History SDOH Chani whitehead Alcohol Frequency - Exter nal History SDOH Chani whitehead Alcohol Std Drinks - Exte rnal History SDOH Chani whitehead Alcohol Binge - External History of tobacco Cigarette Smoker Chani Angel use - External Gender identity Chani bishop - External Sexual orientation Chani Angel - External Alcohol intake 2022-10-15 2022-10-15 3.43 /d Chani parnell 00:00:00 00:00:00 - External Alcohol Comment 2022-06-20 2022-06-20 moderately Chani bishop 00:00:00 00:00:00 - External Education 2022-06-20 2022-06-20 16 Chani Angel 00:00:00 00:00:00 - External Cigarettes smoked 2022-06-20 2022-06-20 Chani Angel current (pack per 00:00:00 00:00:00 - Exter nal day) - Reported Cigarette 2022-06-20 2022-06-20 Chani Angel pack-years 00:00:00 00:00:00 - External History of Social 2022-06-20 2022-06-20 Chanimelanie Angel function 00:00:00 00:00:00 - External Tobacco use and 2022-06-20 2022-06-20 Smokeless tobacco Ke felicita Angel exposure 00:00:00 00:00:00 non-user - External Sex [birth year] At [birth year] Chani bishop 00:00:00 00:00:00 - External Smoking Status Start Date Stop Date Source Tobacco smoking consumption [facility] Smokes tobacco daily 2022-06-20 00:00:00 Chani Tomlinsonalejandro - External Medications Ordered Filled Start Stop Current Ordering Indication Dosage Frequency Signature Comments Components Source Medication Medication Date Date Medication? Clinician (SIG) Name Name Cetirizine Yes 10mg 1 tablet León sey 10 MG oral 08 (10 mg Seybold Tablet 15:22: total) by - 43 other Externa route l Rhubarb Yes Take by Chani (ESTROVEN 5-08 mouth Seybold COMPLETE 15:22: - OR) 43 Externa l Budesonide- Yes [id number] 2{puff} Inhale 2 Chani Formoterol 5-08 6 puffs into Sey bold Fumarate 00:00: the lungs - (Symbicort) 00 2 times Exter na 160-4.5 daily l MCG/ACT inhalation Aerosol predniSONE Yes [id number] 10mg Take 1 K elsey (DELTASONE) 5-08 tablet (10 Se ybold 10 MG oral 00:00: mg total) - tablet 00 by mouth Externa daily l Benzonatate Yes [id number] 100mg Q.[id number] Take 1 Chani (Tessalon 5-08 [id number] capsule S eybold Perles) 100 00:00: 3D (100 mg - MG oral 00 total) by Externa Capsule mouth 3 l times daily as needed for cough Albuterol 2023-0 Yes [id number] 2{puff} Q.25D Inhale 2 Chani HFA 108 (90 5-08 puffs into Se ybold Base) 00:00: the lungs - MCG/ACT IN 00 every 6 Cob Sawyer a AERS hours as l needed for wheezing Azithromyci 0 2022- Yes [id number] Take 2 Chani n 250 MG 5-08 05-14 tablets by Seyb old oral Tablet 00:00: 04:59 mouth on - 00 :00 day 1 then Externa 1 tablet l by mouth daily for 4 days thereafter . Cetirizine 0 Yes 10mg 1 tablet León sey 10 MG oral 4-14 (10 mg Seybold Tablet 13:34: total) by - 10 other Externa route l Rhubarb Yes Take by Chani (ESTROVEN 4-14 mouth Seybold COMPLETE 13:34: - OR) 10 Externa l Levothyroxi 0 Yes [id number] 175ug Take 1 Chani ne Sodium 4-14 tablet Seybold 175 MCG 00:00: (175 mcg - oral Tablet 00 total) by Ext crissy mouth l daily Levothyroxi 0 Yes [id number] 175ug Take 1 Chani ne Sodium 4-14 tablet Seybold 175 MCG 00:00: (175 mcg - oral Tablet 00 total) by Ext crissy mouth l daily Levothyroxi 2022-0 3- No 175ug Take 1 Israel messinaseymour ne Sodium 3-26 04-14 tablet Seybold 175 MCG 00:00: 00:00 (175 mcg - oral Tablet 00 :00 total) by Ext crissy mouth l daily Cetirizine 0 Yes 1{tbl} 1 tablet K elsey 10 MG oral 2-08 by other Seybo ld Tablet 11:11: route - 55 Externa l Rhubarb 2022-0 Yes Take by Chani (ESTROVEN 2-08 mouth Seybold COMPLETE 11:11: - OR) 55 Externa l Gabapentin 2022-0 Yes [id number] 300mg Q.5D Take 1 Chani 300 MG oral 2-08 capsule Seybo ld Capsule 00:00: (300 mg - 00 total) by Externa mouth 2 l times daily as needed Gabapentin 2022-0 Yes [id number] 300mg Q.5D Take 1 Chani 300 MG oral 2-08 capsule Seybo ld Capsule 00:00: (300 mg - 00 total) by Externa mouth 2 l times daily as needed Gabapentin 2022- Yes [id number] 300mg Q.5D Take 1 Chani 300 MG oral 2-08 capsule Seybo ld Capsule 00:00: (300 mg - 00 total) by Externa mouth [...] inhalation Aerosol Administere No Administer Chani puente - ed Seybold Medications 10:46: Medication - Medication 34 sMedicatio Ext crissy OrderMAR n OrderMAR l ActionActio ActionActi n on DateDoseRat DateDoseRa eSiteDecadr teSiteDeca onGiven02/11/ dronGiven9 {mg}Decadro {mg}Decadr nGiven onGiven/187 {mg}Decadro {mg}Decadr qHuzxb72/3/ iaLiahf00 {mg}Kenalog {mg}Kenalo Given02/12/20 gGiven183940 {mg}Kenalog {mg}Kenalo Given bAcgtc29/3 97759 {mg} / {mg} Administere No Administer Chani puente -11 ed Seybold Medications 10:46: Medication - Medication 34 sMedicatio Ext crissy OrderMAR n OrderMAR l ActionActio ActionActi n on DateDoseRat DateDoseRa eSiteDecadr teSiteDeca onGiven02/11/ dronGiven9 {mg}Decadro {mg}Decadr nGiven07/11/187 {mg}Decadro {mg}Decadr bUlvad59/3/ aaJbnfi40 {mg}Kenalog {mg}Kenalo Given02/12/20 gG183940 {mg}Kenalog {mg}Kenalo Given fEefza80/3 30261 {mg} / {mg} Administere No Administer Chani d 06-20 ed Seybold Medications 10:46: Medication - Medication 34 sMedicatio Ext crissy OrderMAR n OrderMAR l ActionActio ActionActi n on DateDoseRat DateDoseRa eSiteDecadr teSiteDeca / dronGiven {mg}Decadro {mg}Decadr nGiven187 {mg}Decadro {mg}Decadr jCmhnq25/3/ {mg}Kenalog {mg}Kenalo Given02/12/20 gG183940 {mg}Kenalog {mg}Kenalo Given hFturq58/3 56812 {mg} / {mg} Administere No Administer Chani d - ed Seybold Medications 10:46: Medication - Medication 34 sMedicatio Ext crissy OrderMAR n OrderMAR l ActionActio ActionActi n on DateDoseRat DateDoseRa eSiteDecadr teSiteDeca on/ dronGiven {mg}Decadro {mg}Decadr nGiven2//2 187 {mg}Decadro {mg}Decadr bMegtj04/3/ {mg}Kenalog {mg}Kenalo Given02/12/20 gGiven1839 {mg}Kenalog {mg}Kenalo Given dHvxje17/3 48879 {mg} / {mg} Administere 2022- No Administer Chani d -11 ed Seybold Medications 10:46: Medication - Medication 34 sMedicatio Ext crissy OrderMAR n OrderMAR l ActionActio ActionActi n on DateDoseRat DateDoseRa eSiteDecadr teSiteDeca on/ dronGiven9 {mg}Decadro {mg}Decadr nGivenGi187 {mg}Decadro {mg}Decadr cOrqdj33/3/ iqHylkf11 {mg}Kenalog {mg}Kenalo Given02/12/20 gGiven1839 {mg}Kenalog {mg}Kenalo Given dAxahk42/3 95352 {mg} / {mg} Cetirizine Yes 1{tbl} 1 tablet K elsey 10 MG oral -11 by other Seybo ld Tablet 10:46: route - 33 Externa l Rhubarb Yes Take by Chani (ESTROVEN -11 mouth Seybold COMPLETE 10:46: - OR) 33 Externa l Budesonide- Yes [id number] 2{puff} Inhale 2 Chani Formoterol -11 6 puffs into Sey bold Fumarate 00:00: the lungs - (Symbicort) 00 daily Externa 160-4.5 l MCG/ACT inhalation Aerosol Sertraline 2022-0 Yes [id number] 50mg Take 1 Chani HCl 50 MG -11 tablet (50 Seyb old oral Tablet 00:00: mg total) - 00 by mouth Externa daily l Sertraline 2022-0 Yes [id number] 50mg Take 1 Chani HCl 50 MG 1-11 tablet (50 Seyb old oral Tablet 00:00: mg total) - 00 by mouth Externa daily l Levothyroxi 2022-0 Yes [id number] 50ug Take 1 Chani ne Sodium 1-11 tablet (50 Seyb old 50 MCG oral 00:00: mcg total) - Tablet 00 by mouth Externa daily l Budesonide- 2022-0 Yes [id number] 2{puff} Inhale 2 Chani Formoterol 1-11 6 puffs into Sey bold Fumarate 00:00: the lungs - (Symbicort) 00 daily Externa 160-4.5 l MCG/ACT inhalation Aerosol Gabapentin 2022-0 Yes [id number] 100mg Q.5D Take 1 Chani 100 MG oral 1-11 capsule Seybo ld Capsule 00:00: (100 mg - 00 total) by Externa mouth 2 l times daily as needed Sertraline 2022-0 Yes [id number] 50mg Take 1 Chani HCl 50 MG 1-11 tablet (50 Seyb old oral Tablet 00:00: mg total) - 00 by mouth Externa daily l Levothyroxi 2022-0 Yes [id number] 50ug Take 1 Chani ne Sodium 1-11 tablet (50 Seyb old 50 MCG oral 00:00: mcg total) - Tablet 00 by mouth Externa daily l Budesonide- 2022-0 Yes [id number] 2{puff} Inhale 2 Chani Formoterol 1-11 6 puffs into Sey bold Fumarate 00:00: the lungs - (Symbicort) 00 daily Externa 160-4.5 l MCG/ACT inhalation Aerosol Sertraline 2022-0 Yes [id number] 50mg Take 1 Chani HCl 50 MG 1-11 tablet (50 Seyb old oral Tablet 00:00: mg total) - 00 by mouth Externa daily l Budesonide- 2022-0 2023- No [id number] 2{puff} Inhale 2 Chani Formoterol 1-11 05-08 6 puffs into Se ybold Fumarate 00:00: 00:00 the lungs - (Symbicort) 00 :00 daily Externa 160-4.5 l MCG/ACT inhalation Aerosol Levothyroxi 2022-0 2023- No [id number] 50ug Take 1 Chani ne Sodium 1-11 04-14 tablet (50 Sey bold 50 MCG oral 00:00: 00:00 mcg total) - Tablet 00 :00 by mouth Externa daily l Gabapentin 2022-0 202- No [id number] 100mg Q.5D Take 1 Chani 100 MG oral 06-20 capsule Seyb old Capsule 00:00: 00:00 (100 mg - 00 :00 total) by Externa mouth 2 l times daily as needed Hibiclens Hibiclens 2020-0 Yes Fallon as Co mmon Hand Pump Hand Pump 2-20 [place] directed [facility] 32oz 32oz 00:00: - [facility] 00 [facility] Hibiclens Hibiclens 2020-0 No Hibiclens Hand Pump Hand Pump 2-20 Hand Pump 32oz - 32oz - 00:00: 32oz - 00 Hibiclens Hibiclens 2020-0 No Hibiclens Hand Pump Hand Pump 2-20 Hand Pump 32oz - 32oz - 00:00: 32oz - 00 Hibiclens Hibiclens 2020-0 No Hibiclens Hand Pump Hand Pump 2-20 Hand Pump 32oz - 32oz - 00:00: 32oz - 00 Keflex Keflex 2020-0 2020- No Fallon 1 capsule Co mmon -20 08-08 [place] [facility] 00:00: 00:00 - [facility] 00 :00 [facility] Symbicort Symbicort 2020-0 2020- No Fallon 2 puffs Common 07-07 [place] [facility] 00:00: 00:00 - [facility] 00 :00 [facility] Triamcinolo Triamcinolo 2018-06 Yes Fallon 1 Common ne ne 2-03 [place] applicatio Spirit Acetonide Acetonide 00:00: n - C HI 00 [facility] Triamcinolo Triamcinolo 2019- No 1{appli Triamcinol ne ne 2-03 cation} one Acetonide Acetonide 00:00: Acetonide 0.1 % 0.1 % 00 0.1 % Triamcinolo Triamcinolo 2019 No 1{appli Triamcinol ne ne 2-03 cation} one Acetonide Acetonide 00:00: Acetonide 0.1 % 0.1 % 00 0.1 % Triamcinolo Triamcinolo 2019 No 1{appli Triamcinol ne ne 2-03 cation} one Acetonide Acetonide 00:00: Acetonide 0.1 % 0.1 % 00 0.1 % Vitamin D3 Vitamin D3 2018-06 2020- No Fallon 1 capsule Common 1-20 05-18 [place] [facility] 00:00: 00:00 - [facility] 00 :00 [facility] Zyrtec Zyrtec Yes Fallon 1 tablet [facility] Allergy [place] [facility] Zoloft Zoloft Yes Fallon 1 tablet Common [place] [facility] Levothyroxi Levothyroxi Yes Fallon 1 tablet Common ne Sodium ne Sodium [place] in the Sp vern morning on - [facility] an empty [facility] Sertraline Sertraline No Sertraline HCl [...] Allergy 10 MG MG MG Symbicort Symbicort No 2{puffs BID Symbicort 160-4.5 160-4.5 02-14 } 160-4.5 MCG/ACT MCG/ACT 00:00 MCG/ACT :00 Symbicort Symbicort 2020- No 2{puffs BID Symbicort 160-4.5 160-4.5 02-14 } 160-4.5 MCG/ACT MCG/ACT 00:00 MCG/ACT :00 Symbicort Symbicort 2020- No 2{puffs BID Symbicort 160-4.5 160-4.5 02-14 } 160-4.5 MCG/ACT MCG/ACT 00:00 MCG/ACT :00 Immunizations Ordered Immunization Filled Immunization Date Status Commen ts Source Name Name Dexamethasone Dexamethasone 2019-05-12 Completed [facility] 11:23:[facility] Dexamethasone Dexamethasone 2019-05-12 Completed [facility] 11:23:00 [facility] Dexamethasone Dexamethasone 2019-05-12 Completed [facility]irit 11:23:00 [facility] Kenalog Kenalog 2019-05-12 Completed [facility] (Triamcinolone) (Triamcinolone) 11::00 [facility] [place] Kenalog 2019-05-12 Completed [facility] (Triamcinolone) (Triamcinolone) 11::00 - [facility] [place] Kenalog 2019-05-12 Completed [facility] (Triamcinolone) (Triamcinolone) 11::00 [facility] 2018-02-11 Completed [facility] (Triamcinolone) (Triamcinolone) 15:07:00 - [facility] 2018-02-11 Completed [facility] (Triamcinolone) (Triamcinolone) 15:07:00 - [facility] Kenalog Kenalog 2018-02-11 Completed [facility] (Triamcinolone) (Triamcinolone) 15:07:00 [facility] Dexamethasone Dexamethasone 2018-02-11 Completed [facility]irit 15:06:00 [facility] Dexamethasone Dexamethasone 2018-02-11 Completed Common S pirit 15:06:00 [facility] Dexamethasone Dexamethasone 2018-02-11 Completed Common S pirit 15:06:00 [facility] Dexamethasone Dexamethasone 2017-07-11 Completed Common S pirit 15:10:00 [facility] Dexamethasone Dexamethasone 2017-07-11 Completed Common S pirit 15:10:00 [facility] Dexamethasone Dexamethasone 2017-07-11 Completed Common S pirit 15:10:00 [facility] Vital Signs Vital Name Observation Time Observation Value Comments Source Systolic blood 2022-10-15 20:20:00 116 mm[Hg] Chani Angel - pressure External Diastolic blood 2022-10-15 20:20:00 82 mm[Hg] Carmen Angel - pressure External Heart rate 2022-10-15 20:20:00 104 /min Chani S eybold - External Body temperature 2022-10-15 20:20:00 36.61 Mami Kaylie ey Seybold - External Respiratory rate 2022-10-15 20:20:00 15 /min Kaylie ey Seybold - External Body height 2022-10-15 20:20:00 167.6 cm Chani S eybold - External Body weight 2022-10-15 20:20:00 111.585 kg Chani S eybold - External BMI 2022-10-15 20:20:00 39.71 kg/m2 Chani S eybold - External Oxygen saturation in 2022-10-15 20:20:00 99 /min Chani Angel - Arterial blood by External Pulse oximetry Systolic blood 2022-09-21 18:50:00 130 mm[Hg] Chani Seybold - pressure External Diastolic blood 2022-09-21 18:50:00 85 mm[Hg] Carmen y Seybold - pressure External Heart rate 2022-09-21 18:50:00 90 /min Chani S eybold - External Body temperature 2022-09-21 18:50:00 36.78 Mami Kaylie ey Seybold - External Respiratory rate 2022-09-21 18:50:00 18 /min Kaylie ey Seybold - External Body height 2022-09-21 18:50:00 167.6 cm Chani S eybold - External Body weight 2022-09-21 18:50:00 111.585 kg Chani S eybold - External BMI 2022-09-21 18:50:00 39.71 kg/m2 Chani S eybold - External Systolic blood 2022-07-18 17:09:00 123 mm[Hg] Chani Seybold - pressure External Diastolic blood 2022-07-18 17:09:00 75 mm[Hg] Leónse y Seybold - pressure External Heart rate 2022-07-18 17:09:00 85 /min Chani S eybold - External Body temperature 2022-07-18 17:09:00 36.78 Mami Kaylie ey Seybold - External Respiratory rate 2022-07-18 17:09:00 14 /min Kaylie ey Seybold - External Body height 2022-07-18 17:09:00 167.6 cm Chani Paredes eybold - External Body weight 2022-07-18 17:09:00 115.214 kg Chani Paredes eybold - External BMI 2022-07-18 17:09:00 41.00 kg/m2 Chani Paredes eybold - External Oxygen saturation in 2022-07-18 17:09:00 99 /min Chani Angel - Arterial blood by External Pulse oximetry Systolic blood 2022-06-20 16:39:00 110 mm[Hg] Chani Seybold - pressure External Diastolic blood 2022-06-20 16:39:00 [...] External BMI 2022-06-20 16:39:00 40.35 kg/m2 Chani Paredes eybold - External height 2021-01-16 16:00:00 65.75 [in_i] [facility] weight 2021-01-16 16:00:00 235.8 [lb_av] Common [facility] temperature 2021-01-16 16:00:00 97.6 [degF] Common [facility] bmi 2021-01-16 16:00:00 38.34 kg/m2 [facility] oximetry 2021-01-16 16:00:00 99 % [facility] S [facility] respiratory rate 2021-01-16 16:00:00 16 /min Comm on [facility] blood pressure 2021-01-16 16:00:00 139 mm[Hg] Common [facility] - systolic [facility] blood pressure 2021-01-16 16:00:00 84 mm[Hg] [facility] - diastolic [facility] height 2020-07-19 16:20:00 65.75 [in_i] [facility] weight 2020-07-19 16:20:00 232.2 [lb_av] [facility] temperature 2020-07-19 16:20:00 97.2 [degF] [facility] bmi 2020-07-19 16:20:00 37.76 kg/m2 [facility] oximetry 2020-07-19 16:20:00 99 % [facility] respiratory rate 2020-07-19 16:20:00 18 /min Comm on [facility] blood pressure 2020-07-19 16:20:00 137 mm[Hg] Common [facility] - systolic [facility] blood pressure 2020-07-19 16:20:00 72 mm[Hg] [facility] diastolic [facility] Procedures Procedure Date / Time Performed Performing Clinician Ghanshyam lo US HEAD NECK 2021-12-29 13:38:45 Requisition, Paper [facility] [id number] 2015-07-22 00:00:00 [facility] [id number] 2015-07-22 00:00:00 [facility] Encounters Start End Encounter Admission Attending Care Care Encounter Source Date/Time Date/Time Type Type Clinicians Facility Department ID 2022-08-09 Inpatient MANSI Tabor MACEY [id number] [facility] 07:30:[address] [facility] 2021-07-05 [facility] [id number] Common 12:24:22 Fallon [id number] [facility] 2021-07-05 [facility] [id number] Common 12:22:30 Fallon [id number] [facility] 2021-07-05 Outpatient Yony [facility] [id number] Common 11:08:53 Fallon [id number] [facility] 2021-07-[address] [facility] [id number] Common 10:57:48 Fallon [id number] [facility] 2023-02-22 2023-02-[address] [id number] Chani 08:30:00 08:30:00 ALEKSANDER Seybol d 2022-11-19 2022-11-19 Outpatient PRECHANI SKY [id number] Chani 16:00:00 16:00:00 CRISTOBAL Seybol d 2022-11-06 2022-11-06 Outpatient PRECHANI SKY [id number] Chani 00:00:00 00:00:00 CRISTOBAL Seybol d 2022-11-06 2022-11-06 Outpatient PRECHANI SKY [id number] Chani 00:00:00 00:00:00 CRISTOBAL Seybol d 2022-10-15 2022-10-15 Outpatient PRECHANI SKY [id number] Chani 15:15:00 15:15:00 CRISTOBAL Seybol d 2022-09-21 2022-09-21 Outpatient CHANI MEDEROS [id number] Chani 14:00:00 14:00:00 KAROLINE Seybol d 2022-09-11 2022-09-11 Outpatient CHANI MEDEROS [id number] Chani 14:30:00 14:30:00 KAROLINE Seybol d 2022-08-29 2022-08-29 Outpatient PRECHANI SKY [id number] Chani 11:15:00 11:15:00 CRISTOBAL Seybol d 2022-08-09 2022-08-09 Outpatient DIAMOND Lynn, [facility] DAYS [id number] [facility] 05:33:00 05:33:00 Regi Tomas [facility] 2022-07-18 2022-07-18 Outpatient PRECHANI SKY [id number] Chani 11:15:00 11:15:00 CRISTOBAL Seybol d 2022-06-20 2022-06-20 Outpatient LAB90 CHANI CHANI [id number] Hcani 11:30:00 11:30:00 Seybol d 2022-06-20 2022-06-20 Outpatient CHANI MARTINEZ CHANI [id number] Chani 10:45:00 10:45:00 CRISTOBAL Seybol d 2021-12-29 2021-12-29 Outpatient R RADIOLOGY [facility] [id number] Univers 08:08:34 23:59:00 [facility] 2021-12-29 2021-12-29 Hospital Radiology [facility] [id number] Univers 08:00:00 23:59:00 Encounter ANGLECHRIS [id number] ity [facility] [id number] [facility] [id number] [facility] 806 [place] 2021-12-19 2021-12-19 [facility] [id number] [place] 02:13:00 02:13:00 _ANN 0712 da [facility] Outre h Program 2021-01-16 2021-01-16 OFFICE STLMLC STLMLC [id number] Co mmon 00:00:00 00:00:00 VISIT EST Spir it PT LEVEL 3 [facility] 2020-07-30 2020-07-30 (TEL) STLMLC STLMLC [id number] Co mmon 00:00:00 00:00:00 Spirit [facility] 2020-07-19 2020-07-19 OFFICE STLMLC STLMLC [id number] Co mmon 00:00:00 00:00:00 VISIT EST Spir it PT LEVEL 3 [facility] 2019-07-30 2019-07-30 [id number] Common 14:00:00 14:00:00 [facility] [address] [facility] 2019-07-07 2019-07-07 Out[facility] [id number] Common 16:54:00 16:54:00 [facility] [facility] [facility] 2019-06-12 2019-06-12 [id number] Common 09:40:00 09:40:[address] [facility] - [facility] 2019-05-12 2019-05-12 [id number] Common 10:40:00 10:40:[address] [facility] - [facility] 2019-04-29 2019-04-29 [id number] Common 11:36:00 11:36:[address] [facility] - [facility] 2019-04-20 2019-04-20 [facility] [id number] Common 15:20:00 15:20:[address] [facility] 2015-07-22 2015-07-23 Inpatient ROBBY AgueroWH OBST [id number] [facility] 07:49:00 17:20:[address] Results Test Description Test Time Test Comments Results Result Comments Source SURGICAL 2022-08-10 15:18:00 Test Item Value Reference Range Interpretation Comme nts SURGICAL RUN DATE: (test 08/10/22 ROBBY Muhammad d - LAB PAGE 1 RUN TIME: 1518 Specimen Inquiry RUN USER: INTERFACE code = PATIENT: LANETTE BLACKMON ACCT #: [id number] LOC: CHRYSTAL Mackay #: [id number] AGE/SX: 37/F ROOM: RE08/09/22REG DR: Regi Lynn MD : 85 BED: DIS: ATUS: [facility] TLOC: SPEC #: [id number] RECD: 08/09/221056 STATUS: CAITLIN STACK #: [id number] NEREIDA: 08/09/[address] [facility] DR: Regi Lynn MD ENTER ED: 08/09/22 SP TYPE: SURGICAL OTHR DR: ORDERED: 17192/2, ANATOMIC SPEC, SPECIMEN TRACK PROCEDU RES: [id number] (08/10/22) SPECIMEN TRACK (08/09/22) TISSUES: A. THYROID LOBE, [...] tissue processing and slide preparation performed at [id number] , [place] [address] Unless gross only, the diagnosis is based upon micr oscopic examination.Immunohistochemistry: This test was developed and its performance characteristicsd etermined by this laboratory. It has not been approved nor does it need approval by the USFDA. Appro priate positive and negative controls are reviewed and judged to be acceptable. CONTINUED ON NEXT PAGE RUN DATE: 08/10/22 [facility] LAB PAGE 2 RUN TIME: 1518 Specimen Inquiry RUN USER: INTERFACE SPEC #: [id number] PATIENT: LANETTE ROBLEDO #[id number] (Continued) GROSS DESCRIPTION (Continued ) This laboratory is certified under the Clinical Laboratory Improvement Amendments (CLIA-88)as quali fied to perform high complexity clinical laboratory testing. Signed Kimberly Larsen 08/30 1518 END OF REPORT PARATHYROID HORMONE [id number] 14:21:00 Test Item Value Reference Range Interpretation Comments PARATHYROID HORMONE INTACT (test 3.8 pg/mL 14.0-72.0 L code = PARAI) PARATHYROID HORMONE [id number] 14:20:00 Test Item Value Reference Range Interpretation Comments PARATHYROID HORMONE INTACT (test 3.8 pg/mL 14.0-72.0 L code = PARAI) PROTHROMBIN [id number] 16:48:00 Test Item Value Reference Range Interpretation [...] (to prevent recurrent infar ct). THROMBOPLASTIN TIME [id number] 16:48:00 Test Item Value Reference Range Interpretation Comments THROMBOPLASTIN TIME PARTIAL 28.8 SECONDS 26-35 N (test code = PTT) CBC W/AUTO [id number] 15:48:00 Test Item Value Reference Range Interpretation [...] NO DIFF/SCN CRITERIA = MDIFF) HCG SERUM [id number] 15:41:00 Test Item Value Reference Range Interpretation Comments HCG SERUM QUAL (test SERUM NEGATIVE SCREEN NEGATIVE code = HCGQL) Notes Date/Time Note Provider Source 2022-08-09 10:13:00-00:00 [facility] ([facility]) Full Op Note REPORT#:[id number] REPORT STATUS: Signed DATE:08/09/22 TIME:1013 PATIENT: LANETTE ROBLEDO UNIT #: [id number] ROOM/BED: : 85 AGE: 37 SEX: F ATTEND: Ludin Lynn MD ADM AUTHOR: Regi Lynn MD * ALL edits or amendments must be made on the el ectronic/computer document * Operative Report Start date: 08/09/22 Start time: 729 Pre-procedure diagnosis: left thyroid neoplasm of unknown behavior, dysph agia Post-procedure diagnosis: same Procedures performed: total thyroidectomy Technique/Procedure: The patient was brought to [facility] operating room and placed undern general via NIMS endotracheal tube with groun d and stimulating probes place. A shoulder roll was placed and the patient's neck extended b ut supported. The thyroid was palpated with expected finding of 4cm round firm left nodule. The planned incision site was injected with 6ml of 1% lidocaine with epine phrine. The skin was cleaned with Chlroprep with appropriate dry time. She re cieved 12mg dexamethasone and 2g Ancef perioperatively. The neck was d raped in a sterile fashion for thyroid surgery. After the time out, the planned incision was mar ked within a horizontal neck crease and incision performed with 15 bl lyndsay scapel. The skin edge bleeding was cauterized and the subcutaneous fat was divided as was the platysmal muscle. Subplatysmal flaps were elevated superiorly and inferiorly for adequate exposure. The strap muscles were in th e midline and the left straps bluntly elevated from the la rge round smooth firm thyroid. Small Antony and Army-Blandon retractors were used to provide exposu re and the superior pole was mobilized with Hieu dissectors, Kinter sponge and soft tissue attachments divided with Ligasure. The superior pole was mob ilized and dissection carried out inferiorly along the lateral border with div ision of the middle thyroid vein. The inferior pole was easily mobilized with blunt dissection and ligasure division of the inferior thy roid vein. The isthmus was then address with gentle elevation of the right strap muscles. The inferi or aspect of the isthmus was gently elevated off the anterior tracheal wall a nd divided with the Liagsure. The medial aspect of the left thyroid was elevat ed off from the anterior and lateral wall. There was a prominent vein noted w hile approaching the tracheal esophageal groove and was gently elevated from [facility] capsle of the thyroid with division via Ligasure. This allowed siple divisi on of the final soft tissue attachments, freeing the left thyroid co mpletely from the surgical cavity. The specimen was passed to the back table and the le ft thyroid bed carefully inspected. There was no significant bleeding not ed. The left recurrent nerve was note deep to a fascial l ajleel and the Hieu was used to carefully expose the nerve. The NIMS monitor and nerve stimulator [facility] used a 1mA and significant response of about 350 was measured. Due to good function of the left recurrent laryngeal nerve, I elected to proceed with right thyroid removal. The right strap muscles were further elevated fr om the superior aspect of the right thyroid which was sign ificantly smaller than the left side. A [place] was used to retract the thyroid while the Hagen, Ethan nter and Ligasure was used to dissect and divide the tissues. The superior [place] e was lifted with division of the vascular pedicle using t he Ligasure and the medial portion elevated from the tracheal wall. In ther region near the anticipat ed right recurrent laryngeal nerve location, several smal l vessels were cauterized with bipolar and divided. The tissues in this area were judiciously dissec wade until the thyroid was completely freed. There was a small amount of oo zing in the area near Courtney's ligament which was treated with direct pressure with a RayTec for several minutes. After removal of the packing, the area appeared hemostatic. Careful visual inspection did not reveal obvious recurre nt laryngeal nerve. The nerve stimulator was applied nerves expected i nsertion point without specific return signal. After brief exporation of the tissues, I elected for forgo formal dissection of the right recurrent laryng eal nerve since identification was not deemed nessecary in regards to the completion of the surgery. A mosquito clamp and 15 blade were used to make a small incision in the left skin place and a 10Fr round KITA drain was placed in the thyroid bed, secured to the skin with a 3-0 nylon suture. An initial spo nge and needle count were confirmed and the wound was closed with a layer fashion. The strap muscles were approximated with a single 4-0 vicryl suture. Th e plasyma was closed witn 4-0 vicryl interrupted sutures. The skin was closed with 4-0 monocryl subcuticular sutures after additional cauterization of some b leeding at the skin edges. The skin was cleaned and incision dressed with M astisol and steri-strips. The KITA was connected to the bulb with a small amount of bloodly fluid. The [facility] and extubation in the operating room which pro ceeded without complication. She wsa transferred to the recovery room for monitoring and PTH lab dra mcelroy Primary Surgeon: Regi Lynn Co-surgeon: None Principal Trainer(s): none Anesthesia: general anesthesia Operative findings: 4 cm left thyroid nodule Complications: none Estimated blood loss in ml's: 5ml Specimens removed/altered: right and left thyroi d Drain(s)/tube(s): none, 10Fr round KITA Implant(s): none (none) at 1044 RPT #: [id number] END OF REPORT
[2022-11-06] MEDS ORDERED: IBUPROFEN 400 MG TAB ONE ×2 (10:30→10:31)
--- NOTE | 2022-11-06 11:39 | RAD REPORT ---
EXAM DESCRIPTION: RAD - Ankle Left 3 View - 11/06/2022 11:30 am CLINICAL HISTORY: PAIN COMPARISON: No comparisons TECHNIQUE: Left ankle, 3 views. FINDINGS: No fracture, dislocation or periosteal reaction. No joint effusion seen. No joint space na rrowing. Soft tissue swelling about the ankle. IMPRESSION: No acute osseous abnormality. Soft tissue swelling about the ankle.
--- NOTE | 2022-11-06 11:40 | RAD REPORT ---
EXAM DESCRIPTION: RAD - Foot Left 3 View - 11/06/2022 11:30 am CLINICAL HISTORY: PAIN COMPARISON: No comparisons TECHNIQUE: Left foot, 3 views. FINDINGS: No fracture, dislocation or periosteal reaction. No air or foreign body in the soft tissues. IMPRESSION: Negative left foot radiographs.
--- NOTE | 2022-11-06 11:45 | ER ---
Nurse's Notes [facility] Name: Sammi Aguirre Age: 37 yrs Sex: Female : 1985 Arrival Date: 11/06/2022 Time: 09:54 Bed 12 Private MD: Diagnosis: Sprain of foot Presentation: 11/06 10:16 Chief complaint: Slipped while walking in flip flops yesterday, now c/o left foot and hb ankle pain 11/17. Coronavirus screen: At this time, the client does not indicate any symptoms associated with coronavirus-19. Ebola Screen: No symptoms or risks identified at this time. Initial Sepsis Screen: Does the patient meet any 2 criteria? No. Patient's initial sepsis screen is negative. Does the patient have a suspected source of infection? No. Patient's initial sepsis screen is negative. Risk Assessment: Do you want to hurt yourself or someone else? Patient reports no desire to harm self or others. Onset of symptoms was November 05, 2022. 10:16 Method Of Arrival: Ambulatory hb 10:16 Acuity: IVANNA 4 hb Triage Assessment: 10:20 General: Appears in no apparent distress. Behavior is calm, cooperative. Pain: Pain hb currently is 6 out of 10 on a pain scale. Neuro: Level of Consciousness is awake, alert, obeys commands, Oriented to person, place, time, situation. Cardiovascular: Patient's skin is warm and dry. Respiratory: Respiratory effort is even, unlabored, Respiratory pattern is regular, symmetrical. Musculoskeletal: Reports left foot and ankle pain. Historical: - Allergies: 10:19 No Known Allergies; hb - PMHx: 10:19 Hypothyroidism; hb - PSHx: 10:19 Thryroidectomy; hb - Immunization history:: Adult Immunizations up to date. - Social history:: Smoking status: Patient denies any tobacco usage or history of. Screenin:32 [facility] ED Fall Risk Assessment (Adult) History of falling in the last 3 months, iw including since admission No falls in past 3 months (0 pts). Abuse screen: Denies threats or abuse. Denies injuries from another. Nutritional screening: No deficits noted. Tuberculosis screening: No symptoms or risk factors identified. Assessment: 12:32 Reassessment: PT DC HOME VIA WC. iw Vital Signs: 10:16 Pulse 87; Resp 16; Temp 97.2; Pulse Ox 100% on R/A; Weight 108.86 kg; Height 5 ft. 6 hb in. ; Pain 6/10; 10:16 Body Mass Index 38.74 (108.86 kg, 167.64 cm) hb 10:16 Pain Scale: Adult hb ED Course: 09:55 Patient arrived in ED. am2 10:14 Kathy Fermin [facility]-C [facility]. kb 10:14 Avelino Anna MD is Attending Physician. kb 10:19 Triage completed. hb 10:19 Arm band placed on. hb 11:32 Foot Left 3 View XRAY In Process Unspecified. EDMS 11:32 Ankle Left 3 View XRAY In Process Unspecified. EDMS 12:32 Patient has correct armband on for positive identification. Call light in reach. iw 12:32 No provider procedures requiring assistance completed. Patient did not have IV access iw during this emergency room visit. Crutch training done. Daryl wrap to left ankle. Administered Medications: 10:25 Drug: Ibuprofen PO 800 mg Route: PO; hb 12:31 Follow up: Response: No adverse reaction iw Medication: 12:32 VIS not applicable for this client. iw Outcome: 11:45 Discharge ordered by MD. kb 12:33 Discharged to home via wheelchair. iw 12:33 Condition: stable 12:33 Discharge instructions given to patient, Instructed on discharge instructions, follow up and referral plans. medication usage, crutch walking, Demonstrated understanding of instructions, follow-up care, medications, crutch walking, Prescriptions given X 1. 12:33 Patient left the ED. iw Signatures: Dispatcher [employer] EDMS Kathy Fermin FNP-C FNP-Ckb Williams, Irene, RN RN Shawna Bahena, RN RN Arti Tafoya am2
--- NOTE | 2022-11-06 11:45 | EDPHYS ---
Physician Documentation [facility] Name: Sammi Aguirre Age: 37 yrs Sex: Female : 1985 Arrival Date: 11/06/2022 Time: 09:54 Bed 12 Private MD: ED Physician Avelino Anna HPI: 11/06 15:54 This 37 yrs old Female presents to ER via Ambulatory with complaints of Foot Injury, kb Fall Injury. 15:54 The patient presents with decreased range of motion, pain, swelling, tenderness. The kb complaints affect the left ankle and left foot. Context: The problem was sustained at home, resulted from the patient falling, the patient can partially bear weight, the patient is able to ambulate, with moderate difficulty, Problem is a result from a previous injury: No. Onset: The symptoms/episode began/occurred yesterday. Modifying factors: The symptoms are alleviated by nothing. the symptoms are aggravated by movement, weight bearing. Associated signs and symptoms: Pertinent positives: swelling. Treatment prior to arrival includes: no previous treatment. Severity of symptoms: At their worst the symptoms were moderate, in the emergency department the symptoms are unchanged. The patient has not experienced similar symptoms in the past. The patient has not recently seen a physician. Historical: - Allergies: 10:19 No Known Allergies; hb - PMHx: 10:19 Hypothyroidism; hb - PSHx: 10:19 Thryroidectomy; hb - Immunization history:: Adult Immunizations up to date. - Social history:: Smoking status: Patient denies any tobacco usage or history of. ROS: 15:51 Constitutional: Negative for fever, chills, and weight loss. kb 15:51 MS/extremity: Positive for pain, swelling, tenderness, of the left foot and left ankle. 15:51 All other systems are negative. Exam: 15:51 Constitutional: This is a well developed, well nourished patient who is awake, alert, kb and in no acute distress. Head/Face: Normocephalic, atraumatic. ENT: Moist Mucous membranes Cardiovascular: Regular rate and rhythm with a normal S1 and S2. No gallops, murmurs, or rubs. No pulse deficits. Respiratory: Respirations even and unlabored. No increased work of breathing. Talking in full sentences Skin: Warm, dry with normal turgor. Normal color. Neuro: Awake and alert, GCS 15, oriented to person, place, time, and situation. Moves all extremities. Normal gait. 15:51 Musculoskeletal/extremity: Extremities: grossly normal except: noted in the left foot and left ankle: ecchymosis, pain, swelling, tenderness, ROM: intact in all extremities, Circulation is intact in all extremities. Sensation intact. Weight bearing: can bear weight with assistance only. Vital Signs: 10:16 Pulse 87; Resp 16; Temp 97.2; Pulse Ox 100% on R/A; Weight 108.86 kg; Height 5 ft. 6 hb in. ; Pain 6/10; 10:16 Body Mass Index 38.74 (108.86 kg, 167.64 cm) hb 10:16 Pain Scale: Adult hb MDM: 10:19 Patient medically screened. kb 15:53 Differential diagnosis: dislocation, closed fracture, contusion, sprain. Data reviewed: kb vital signs, nurses notes. Counseling: I had a detailed discussion with the patient and/or guardian regarding: the historical points, exam findings, and any diagnostic results supporting the discharge/admit diagnosis, radiology results, the need for outpatient follow up, a family practitioner, a orthopedic surgeon, to return to the emergency department if symptoms worsen or persist or if there are any questions or concerns that arise at home. 11/06 10:22 Order name: Foot Left 3 View XRAY; Complete Time: 11:44 kb 11/06 10:22 Order name: Ankle Left 3 View XRAY; Complete Time: 11:44 kb 11/06 11:45 Order name: Daryl Wrap; Complete Time: 12:31 kb 11/06 12:02 Order name: Crutches; Complete Time: 12:31 kb Administered Medications: 10:25 Drug: Ibuprofen PO 800 mg Route: PO; hb 12:31 Follow up: Response: No adverse reaction iw Disposition Summary: 11/06/22 11:45 Discharge Ordered Location: Home Condition: Stable kb Diagnosis - Sprain of foot kb Followup: kb - With: Emergency Department - When: As needed - Reason: Worsening of condition Followup: kb - With: Private Physician - When: 2 - 3 days - Reason: Recheck today's complaints, Continuance of care, Re-evaluation by your physician Discharge Instructions: - Discharge Summary Sheet kb - Foot Sprain kb Forms: - Medication Reconciliation Form kb - Thank You Letter kb - Antibiotic Education kb - Prescription Opioid Use kb Prescriptions: - Diclofenac Sodium 75 mg Oral tablet,delayed release (DR/EC) - take 1 tablet by ORAL route 2 times per day As needed; 30 tablet; Refills: 0, kb Product Selection Permitted Signatures: Dispatcher [employer] EDMS Kathy Fermin, Shawna Traore RN RN hb Williams, Irene RN iw Corrections: (The following items were deleted from the chart) 15:53 15:51 Musculoskeletal/extremity: Extremities: grossly normal except: noted in the left kb foot and left ankle: ecchymosis, pain, swelling, tenderness, ROM: intact in all extremities, Circulation is intact in all extremities. Sensation intact. Weight bearing: able to fully bear weight, kb
[2022-11-06 12:38] VITALS: TEMP 97.2; O2SAT 100
== END 2022-11-06 12:33 | disposition home or self-care (01) ==
LOC: ER 09:54
DX: S93.602A Unspecified sprain of left foot, initial encounter (principal)
CPT/HCPCS: 99284